=== PATIENT | male | born 1960 | race Caucasian/White ===

== ENCOUNTER → 2020-11-29 | Day surgery (SDC) | payer BC ==
[~2020-11-29] MED LIST: COZAAR100 MG PO
== END | disposition home or self-care (01) ==
LOC: OR 11:13
DX: C61 Malignant neoplasm of prostate (principal); N42.89 Other specified disorders of prostate; Z20.822 Contact with and (suspected) exposure to COVID-19; Z87.442 Personal history of urinary calculi
CPT/HCPCS: J7040; J7120; U0002